=== PATIENT | female | born 1945 | race Caucasian/White ===

== ENCOUNTER → 2020-02-18 15:03 | Outpatient (CLI) | payer MEDICARE, SELFPAY ==
--- NOTE | ~2020-02-18 | US_ITS ---
EXAMINATION: US renal BI EXAM DATE: 02/18/2020 15:53 INDICATION: UTI, hematuria. TECHNIQUE: Multiple grayscale and Doppler images of the kidneys were obtained (by a technologist who performed the scan) and subsequently reviewed. There is no prior study for comparison. FINDINGS: There is hepatic steatosis. Right kidney: There is normal contour and echogenicity. It measures 9.3 x 4.5 x 5.5 centimeters. Th ere are no focal renal lesions identified. There is no hydronephrosis. Left kidney: There is normal contour and echogenicity. It measures 10.1 x 4.9 x 5.0 centimeters. Th ere are no focal renal lesions identified. There is no hydronephrosis. Bladder unremarkable. IMPRESSION: 1. Sonographically unremarkable kidneys. 2. Hepatic steatosis. Reviewed, dictated and finalized at location B.
== END ==
PROVIDERS: PCP Internal Medicine
DX: N39.0 Urinary tract infection, site not specified (principal); K76.0 Fatty (change of) liver, not elsewhere classified
CPT/HCPCS: 76775

== ENCOUNTER → 2020-12-03 12:05 | Outpatient (CLI) | payer MEDICARE, SELFPAY ==
--- NOTE | ~2020-12-03 | XR_ITS ---
EXAMINATION: XR foot LT min 3V DATE: 12/03/2020 12:59 INDICATION: Left foot pain TECHNIQUE: Dorsoplantar, lateral, and 2 oblique views of the left foot were obtained. COMPARISON: None. FINDINGS: There is subtle lucency at the lateral base of the fifth metatarsal. 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 There is a small plantar calcaneal enthesophyte. IMPRESSION: 1. Possible nondisplaced fracture at the lateral base of the fifth metatarsal. Recommend clinical cor relation for pain. Reviewed, dictated and finalized at location B. IMPRESSION: 1. Possible nondisplaced fracture at the lateral base of the fifth metatarsal. Recommend clinical correlation for pain.
== END ==
PROVIDERS: PCP Internal Medicine; Visit Provider Podiatrist Foot & Ankle Surgery
DX: M79.672 Pain in left foot (principal)
CPT/HCPCS: 73630

== ENCOUNTER 2021-03-02 00:52 | Day surgery (SDC) | payer MEDICARE, SELFPAY ==
[2021-02-14 12:32] VITALS: BMI 32.9
--- NOTE | 2021-03-01 13:58 | WPDANESEPPF ---
Anes - Initial Pre Proc Eval Procedure: Operation Date: 03/02/21 08:30 Proposed Procedures p Screening Colonoscopy - Adrián Vallejo MD Date/Time: 03/01/21 13:58 Surgeon: Adrián Vallejo MD Pre Op Diagnosis: hx of colon polyps Patient Data Age: 75 Gender: F Height: 1.63 m Weight: 87 kg Allergies Allergy/AdvReac Type Severity Reaction Status Date / Time clindamycin AdvReac Itching Verified 03/02/21 07:39 lisinopril AdvReac Cough Verified 03/02/21 07:39 glycol Allergy Itching Uncoded 01/18/21 13:29 Home Medications Medication Instructions Recorded Confirmed Type rosuvastatin 5 mg PO DAILY 08/19/19 02/14/21 History sodium,potassium,mag sulfates 17.5 See Rx Instructions PO .COMPLEX 02/04/21 Rx gram-3.13 gram-1.6 gram oral soln #354 ml amlodipine 2.5 mg PO DAILY 02/14/21 02/14/21 History lorazepam 1 mg PO DAILY 02/14/21 03/02/21 History Patient hx anesthesia problems: none Family hx anesthesia problems: none PMFSH Past Medical History Medical History Anxiety Chronic GERD Headaches due to old head injury Hypertension IBS (irritable bowel syndrome) Obesity Family History Family History Father Diabetes mellitus Hypertension Heart disease Alcohol abuse Mother Diabetes mellitus Hypertension Cancer Sibling Diabetes mellitus Cancer Son Hypertension Asthma Cancer Social History Social History Smoking status: Never smoker Second hand tobacco smoke exposure: No Alcohol intake: never Alcohol use details: whiskey Substance use: never Substance use type: does not use Living arrangements: with family Gender identity (if verbalized by the patient): Female Spiritual care concerns: No Agree to blood products: Yes Anes - Eval Final PreProcedure Day of Procedure 03/01/21 13:58 Patient weight: obese Heart: regular rate and rhythm Lungs: clear to auscultation and normal air movement Airway: Mallampati scale class II Neurological: alert and oriented Last oral intake: >/= 8 hours ASA classification: III Emergent: no Anesthetic plan: proceed Anesthesia type and monitoring: general GIVS Informed Consent: The patient's anesthetic plan and its attendant risks and benefits were discussed with the patient/family/POA. Questions were solicited and answers provided to the satisfaction of the patient/family/POA.
[2021-03-02 07:41] VITALS: BP 165/95; PULSE 101; RESP 20; TEMP 36.2; O2SAT 95; BMI 31.8
--- NOTE | 2021-03-02 07:52 | PM.HPGS ---
History of Present Illness History of Present Illness Consent: Risks, benefits, and alternatives have been discussed and questions answered. Patient agrees to proceed with procedure. Chief complaint: hx of colon polyps Narrative: Anika Castillo is a 75 year old female here for colon cancer screening. She does have a history of polyps. Recently she has been troubled by great deal of perianal excoriation, itching, probably due to the fact that she has been on several courses of antibiotics. Review of Systems Review of Systems: All systems reviewed & are unremarkable except as noted in HPI and below PMFSH Past Medical History Medical History Anxiety Chronic GERD Headaches due to old head injury Hypertension IBS (irritable bowel syndrome) Obesity Family History Family History Father Diabetes mellitus Hypertension Heart disease Alcohol abuse Mother Diabetes mellitus Hypertension Cancer Sibling Diabetes mellitus Cancer Son Hypertension Asthma Cancer Social History Social History Smoking status: Never smoker Second hand tobacco smoke exposure: No Alcohol intake: never Alcohol use details: [employer] Substance use: never Substance use type: does not use Living arrangements: with family Gender identity (if verbalized by the patient): Female Spiritual care concerns: No Agree to blood products: Yes Meds Home Medications and Allergies Home Medications Medication Instructions Recorded Confirmed Type rosuvastatin 5 mg PO DAILY 08/19/19 02/14/21 History sodium,potassium,mag sulfates 17.5 See Rx Instructions PO .COMPLEX 02/04/21 Rx gram-3.13 gram-1.6 gram oral soln #354 ml amlodipine 2.5 mg PO DAILY 02/14/21 02/14/21 History lorazepam 1 mg PO DAILY 02/14/21 03/02/21 History Allergies Allergy/AdvReac Type Severity Reaction Status Date / Time clindamycin AdvReac Itching Verified 03/02/21 07:39 lisinopril AdvReac Cough Verified 03/02/21 07:39 glycol Allergy Itching Uncoded 01/18/21 13:29 Vital Signs Vital Signs - 24 hr 03/02/21 07:41 Temperature 36.2 C L Pulse Rate 101 H Respiratory Rate 20 Blood Pressure 165/95 H Pulse Oximetry 95 Exam Const: General: alert Orientation/consciousness: patient oriented x3 Resp: Auscultation: clear to auscultation bilaterally Cardio: Rhythm: regular rhythm GI: GI Palp: Yes Soft to palpation and No Tenderness to palpation present (GI) Neuro: General: patient oriented x3 Assessment and Plan Assessment and plan (1) Colon cancer screening: Code(s): Z12.11 - Encounter for screening for malignant neoplasm of colon Status: Acute Assessment and Plan: Colonoscopy with possible biopsy or polypectomy or cautery or injection of substances.
[2021-03-02] MEDS: LACTATED RINGERS 1,000 ML 150 ML IV CONT (07:55)
[2021-03-02 08:46] VITALS: BP 119/67; PULSE 76; RESP 18; O2SAT 96
[2021-03-02 08:56] VITALS: BP 129/78; PULSE 75; RESP 17; O2SAT 97
[2021-03-02 09:06] VITALS: BP 131/81; PULSE 72; RESP 26; O2SAT 98
== END 2021-03-02 09:17 | disposition home or self-care (01) ==
PROVIDERS: PCP Internal Medicine; Visit Provider Internal Medicine Gastroenterology
PROC: 0DJD8ZZ Inspection of Lower Intestinal Tract, Via Natural or Artificial Opening Endoscopic (ICD-10-PCS; CPT 45378; principal; 2021-03-02 08:30)
DX: Z12.11 Encounter for screening for malignant neoplasm of colon (principal); K57.30 Diverticulosis of large intestine without perforation or abscess without bleeding; D12.2 Benign neoplasm of ascending colon; D12.3 Benign neoplasm of transverse colon; I10 Essential (primary) hypertension; K21.9 Gastro-esophageal reflux disease without esophagitis; F41.9 Anxiety disorder, unspecified; K58.9 Irritable bowel syndrome, unspecified; E66.9 Obesity, unspecified; Z68.31 Body mass index [BMI] 31.0-31.9, adult
CPT/HCPCS: 45380; 45385; 88305; J2704; J7120

== ENCOUNTER → 2021-11-18 10:08 | Outpatient (CLI) | payer MEDICARE, SELFPAY ==
--- NOTE | ~2021-11-18 | XR_ITS ---
EXAMINATION: XR thoracic spine 2V DATE: 11/18/2021 11:37 INDICATION: Left-sided neck and upper back and shoulder pain. TECHNIQUE: 2 views of thoracic spine standing were obtained. COMPARISON: None. FINDINGS: There is 12 degrees dextroscoliosis of thoracic spine. Vertebral body heights are normal. T here is mildly decreased disc height at multiple levels in mid thoracic spine. There are endplate ost eophytes at most levels. IMPRESSION: 1. Mild thoracic spondylosis. 2. Thoracic dextroscoliosis. Reviewed, dictated and finalized at location A.
--- NOTE | ~2021-11-18 | XR_ITS ---
XR cervical spine 4-5V DATE: 11/18/2021 11:37 INDICATION: Neck pain TECHNIQUE: Standing AP, lateral, open-mouth and swimmer views COMPARISON: None FINDINGS: C1 and C2 are normally aligned and the odontoid process is intact. No fracture or dislocati on or locked facet or prevertebral soft tissue swelling. There is mild loss of height at C4-5 interspace. There is moderately severe degenerative disc disease and prominent posterior spurring at C5-6. Promin ent uncovertebral joint spurring bilaterally at C5-6. IMPRESSION: Severe degenerative disc disease and prominent posterior spurring at C5-C6 Prominent uncovertebral joint spurring at C5-6 bilaterally Mild loss of height at C4-5 interspace Reviewed, dictated and finalized at location A. IMPRESSION: Severe degenerative disc disease and prominent posterior spurring a t C5-C6 Prominent uncovertebral joint spurring at C5-6 bilaterally Mild loss of height at C4-5 interspace
--- NOTE | ~2021-11-18 | XR_ITS ---
XR shoulder LT min 2V DATE: 11/18/2021 11:37 INDICATION: Left shoulder pain TECHNIQUE: 4 views COMPARISON: None FINDINGS: No fracture or dislocation, periosteal reaction or bone destruction or abnormal soft tissue calcification. There is mild spurring at the acromion clavicular joint. Normal alignment at the acro mioclavicular and glenohumeral joints. IMPRESSION: Mild spurring at the left acromioclavicular joint Reviewed, dictated and finalized at location A.
== END ==
PROVIDERS: PCP Internal Medicine; Visit Provider Internal Medicine
DX: M47.894 Other spondylosis, thoracic region (principal); M25.512 Pain in left shoulder; M50.322 Other cervical disc degeneration at C5-C6 level
CPT/HCPCS: 72050; 72070; 73030

== ENCOUNTER 2022-01-12 12:30 | Outpatient (RCR) | payer MEDICARE, SELFPAY ==
--- NOTE | 2021-12-15 14:32 | PTOPEVAL ---
PHYSICAL THERAPY INITIAL EVALUATION. Thank you for referring Anika Castillo to [facility].? The patient is scheduled to be seen for therapy? 2x/week for 4 weeks. Please review, sign, date and return this plan of care CINDY. I agree with and certify that the following plan of care is medically necessary. Referring Physician Date Attending Provider: Lg West APN *PT Outpatient Evaluation Start: 12/15/21 Evaluation Information Diagnosis L shoulder pain Onset ~2 months Subjective Information Pt states she has been having Query Text:As Reported By Patient/ left shoulder pain, into her Family shoulder blade and down her arm for about 2 months not. She states she has been told it may be a pinched nerve. The only mechanism of injury she can think of is trying to lift a cast iron skillet with one arm. Pt states her pain in worse in the morning and relieved partially with a heating pad. Self Report Pain Assessment Left Shoulder(s) Reported Pain Level 4 Pain Description Aching,Numbness Pain Frequency Acute,Intermittent Lowest Pain Intensity 0 Greatest Pain Intensity 4 Cervical ROM Cervical Flexion (0-60) 60 active Cervical Extension (0-70) 50 active Cervical Lateral Flexion Right (0-50) 45 active Cervical Lateral Flexion Left (0-50) 45 active Cervical Rotation Right (0-90) 70 active Cervical Rotation Left (0-90) 70 active Cervical ROM WNL Cervical ROM Comments increased tightness felt with rotation to the R and R lateral flexion Upper Extremity Range of Motion General Upper Extremity Range of Motion WFL/Left,WFL/Right Gross Upper Extremity Range of Motion B UE equally limited but still functional Upper Extremity Muscle Strength Testing General Upper Extremity Strength WFL/Left,WFL/Right Gross Upper Extremity Strength Comments B UE grossly 4+/5 Muscle Length Testing Teres Major Muscle Length (R) WFL,(L) WFL Posture Head/C-Spine Posture Excess Extension,Forward Head Thoracic Spine Posture Flattened Lumbar Spine Posture Increased Lordosis Shoulder Posture (L) Rounded,(R) Rounded,(L) Forward,(R) Forward Scapula Posture (L) Rotated Up,(L) Elevated Palpation Assessment Palpation tender along medial border of the scapula PT Clinical Summary Anika presents to therapy
--- NOTE | 2022-01-12 12:53 | PTOPEVAL ---
PHYSICAL THERAPY PROGRESS REPORT AND DISCHARGE SUMMARY. Thank you for referring Anika Castillo to [facility].? The patient is d/c'ed from skilled therapy services at this time. Please review, sign, date and return this plan of care CINDY. I agree with and certify that the following plan of care is medically necessary. Referring Physician Date Attending Provider: Lg West APN Evaluation Information Diagnosis L shoulder pain Onset ~2 months Subjective Information Pt states she has little to no Query Text:As Reported By Patient/ pain today, and had no pain Family yesterday. She states she was able to take down the curtains and drapes down and wash them , she states normally who would have not even attempted this cause she know it would have caused pain. Pain Assessment Left Shoulder(s) Reported Pain Level 1 Cervical and Lumbar ROM Cervical active ROM Cervical Flexion (0-60) 60 Cervical Extension (0-70) 60 Cervical Lateral Flexion Right (0-50) 45 Cervical Lateral Flexion Left (0-50) 45 Cervical Rotation Right (0-90) 70 Cervical Rotation Left (0-90) 70 Cervical ROM WNL Cervical ROM Comments increased tightness felt with rotation to the L Upper Extremity Range of Motion General Upper Extremity Range of Motion WFL/Left,WFL/Right Gross Upper Extremity Range of Motion B UE equally limited but Comments functional. Reports mild soreness in L upper trap region Upper Extremity Muscle Strength Testing General Upper Extremity Strength WFL/Left,WFL/Right Gross Upper Extremity Strength Comments B UE grossly 4+/5 - no reports of soreness with resisted motions Posture Head/C-Spine Posture Excess Extension,Forward Head Thoracic Spine Posture Flattened Lumbar Spine Posture Increased Lordosis Palpation Assessment Palpation tender along L upper trap Manual Therapy Side Left Manual Therapy Location Shoulder Patient Position Sitting Manual Therapy Treatment Soft Tissue Mobilization Movement Findings Moderate Hypomobility Treatment Comments - STM to L upper trap PT Clinical Summary Anika presents to therapy today for her progress report following 8 visits of therapy to treat her diagnosis of L shoulder pain. Today she
== END 2022-01-12 15:15 | disposition home or self-care (01) ==
LOC: ANHPT 12:30
PROVIDERS: PCP Internal Medicine; Visit Provider Nurse Practitioner
DX: M54.12 Radiculopathy, cervical region (principal)
CPT/HCPCS: 97014; 97110; 97112; 97140; 97161; G0283

== ENCOUNTER → 2022-01-27 09:15 | Outpatient (CLI) | payer MEDICARE, SELFPAY ==
--- NOTE | ~2022-01-27 | MR_ITS ---
EXAMINATION: MR cervical spine wo con DATE: 01/27/2022 09:49 INDICATION: Other spondylosis with radiculopathy, cervical region. TECHNIQUE: Magnetic resonance imaging (MRI) of the cervical spine was performed without intravenous c ontrast. Sequences included sagittal T2-weighted FSE, sagittal T2-weighted FS FSE, sagittal T1-weight ed FSE, axial MERGE, and axial T2-weighted FSE. COMPARISON: Cervical spine radiographs 11/18/2021 FINDINGS: There is 3 degrees levocurvature of cervicothoracic spine. There is 2 mm retrolisthesis of C5 on C6. There is mildly decreased disc height at C4-C5 and moderately decreased disc height at C5-C 6. The spinal cord signal intensity is normal. The following disc levels are specifically discussed: C2-C3: The disc does not extend beyond the endplate margin. There is no uncovertebral joint osteoarth ritis. There is mild right and moderate left facet joint osteoarthritis. There is no neural foraminal stenosis. There is no central canal stenosis. C3-C4: The disc does not extend beyond the endplate margin. There is no uncovertebral joint osteoarth ritis. There is mild right and severe left facet joint osteoarthritis. There is mild left neural fora chong stenosis. There is no central canal stenosis. C4-C5: The disc is bulging. There is mild left uncovertebral joint osteoarthritis. There is mild left facet joint osteoarthritis. There is mild left neural foraminal stenosis. There is mild central lenny l stenosis. C5-C6: The disc is bulging. There is severe bilateral uncovertebral joint osteoarthritis. There is mi ld bilateral facet joint osteoarthritis. There is moderate bilateral neural foraminal stenosis. There is moderate central canal stenosis with ventral and dorsal indentation of the spinal cord. C6-C7: The disc is bulging. There is mild left uncovertebral joint osteoarthritis. There is mild bila teral facet joint osteoarthritis. There is no neural foraminal stenosis. There is mild central canal stenosis. C7-T1: The disc does not extend beyond the endplate margin. There is no uncovertebral joint osteoarth ritis. There is severe bilateral facet joint osteoarthritis. There is mild bilateral neural foraminal stenosis. There is no central canal stenosis. IMPRESSION: 1. Moderate cervical spondylosis. Reviewed, dictated and finalized at location A.
== END ==
PROVIDERS: PCP Internal Medicine; Visit Provider Nurse Practitioner
DX: M47.22 Other spondylosis with radiculopathy, cervical region (principal)
CPT/HCPCS: 72141

== ENCOUNTER 2022-07-17 01:02 | Day surgery (SDC) | payer MEDICARE, SELFPAY ==
[2022-07-10 09:37] VITALS: BMI 32.1
--- NOTE | 2022-07-15 11:32 | WPDANESEPPF ---
Anes - Initial Pre Proc Eval Procedure: Operation Date: 07/17/22 11:15 Proposed Procedures p Flexible Sigmoidoscopy - Senthil Mar MD s [facility] Hemorrhoid Treatment - Senthil Mar MD <Kishor John MD - Last Filed: 07/19/22 17:21> Date/Time: 07/15/22 11:32 <Kishor John MD - Last Filed: 07/19/22 17:21> Surgeon: Senthil Mar MD <Kishor John MD - Last Filed: 07/19/22 17:21> Pre Op Diagnosis: rectal burn/hemorrhoids <Kishor John MD - Last Filed: 07/19/22 17:21> Patient Data Age: 77 Gender: F Height: 1.63 m Weight: 85 kg <Kishor John MD - Last Filed: 07/19/22 17:21> Allergies Allergy/AdvReac Type Severity Reaction Status Date / Time clindamycin AdvReac Itching Verified 07/17/22 09:50 lisinopril AdvReac Cough Verified 07/17/22 09:50 glycol Allergy Itching Uncoded 07/17/22 09:50 <Kishor John MD - Last Filed: 07/19/22 17:21> Home Medications Medication Instructions Recorded Confirmed Type rosuvastatin 5 mg tablet 5 mg PO DAILY 08/19/19 07/17/22 History amlodipine 2.5 mg tablet 2.5 mg PO DAILY 02/14/21 07/17/22 History lorazepam 0.5 mg tablet 1 mg PO DAILY 02/14/21 07/17/22 History citalopram 10 mg tablet 10 mg PO DAILY 05/17/21 07/17/22 History aojjlueg-izi-qgmlo acid 0.4 1 tablet PO DAILY 11/01/21 07/17/22 History mg-lycopene 300 mcg-lutein 250 mcg tablet (Centrum Silver) pharmacy compounding accessory See Rx Instructions miscellaneous 05/02/22 07/17/22 Rx .COMPLEX #1 ea nystatin 100,000 unit/gram topical 1 applic topical TID #30 grams 05/30/22 07/17/22 Rx powder <Kishor John MD - Last Filed: 07/19/22 17:21> Patient hx anesthesia problems: none <Elio Harris DO - Last Filed: 07/17/22 09:56> Family hx anesthesia problems: none <Elio Harris DO - Last Filed: 07/17/22 09:56> Results Review: All pre-operative results and documents have been reviewed as part of the pre-operative evaluation. <Kishor John MD - Last Filed: 07/19/22 17:21> [facility] Past Medical History Medical History: Medical History (Updated 07/15/22 @ 11:33 by Kishor John MD) Adenomatous colon polyp Anal burning Anxiety Chronic GERD Fecal smearing Headaches due to old head injury Hyperlipidemia Hypertension IBS (irritable bowel syndrome) Internal hemorrhoid Obesity Obesity Pruritus ani <Kishor John MD - Last Filed: 07/19/22 17:21> Surgical History Surgical History: Surgical History H/O tubal ligation History of History of cataract surgery History of cholecystectomy History of D&C <Kishor John MD - Last Filed: 07/19/22 17:21> Family History Family History: Family History Father Diabetes mellitus Hypertension Heart disease Alcohol abuse Mother Diabetes mellitus Hypertension Cancer Sibling Diabetes mellitus Cancer Son Hypertension Asthma Cancer <Kishor John MD - Last Filed: 07/19/22 17:21> Social History Social History: Social History Smoking status: Never smoker Second hand tobacco smoke exposure: No Alcohol intake: never Alcohol use details: whiskey Substance use: never Substance use type: does not use Living arrangements: with family Gender identity (if verbalized by the patient): Female Sexual Orientation (if Verbalized by the Patient): Straight or Heterosexual Spiritual care concerns: No Agree to blood products: Yes <Kishor John MD - Last Filed: 07/19/22 17:21> Anes - Eval Final PreProcedure Day of Procedure 07/15/22 11:32 <Kishor John MD - Last Filed: 07/19/22 17:21> Patient weight: obese <Kishor John MD - Last Filed: 07/19/22 17:21> H
[2022-07-17 09:43] VITALS: BP 151/95; PULSE 98; RESP 18; TEMP 36.4; O2SAT 97; BMI 31.4
[2022-07-17] MEDS: LACTATED RINGERS 1,000 ML 150 ML IV CONT (10:06)
--- NOTE | 2022-07-17 10:13 | PM.HPGS ---
History of Present Illness History of Present Illness Consent: Risks, benefits, and alternatives have been discussed and questions answered. Patient agrees to proceed with procedure. Chief complaint: rectal burn/hemorrhoids Narrative: Anika Castillo is a 77 year old female with burning sensation in anus, tried several ointment. Last colonoscopy 2020 with polyp and diverticulosis Review of Systems Constitutional: Constitutional: Denies headache(s) and Denies weakness Eyes: Eyes: Denies blurry vision ENT: Reports Normal hearing present, Denies headache(s) and Denies neck pain Cardiovascular: Cardiovascular: Denies chest pain and Denies dyspnea Respiratory: Respiratory: Denies dyspnea Gastrointestinal: Gastrointestinal: Reports no additional gastrointestinal complaints Genitourinary: Genitourinary: Denies dysuria Musculoskeletal: Musculoskeletal: Denies neck pain Integumentary/Breasts: Skin/Breast: Denies dry skin Neurologic: Reports Normal hearing present, Denies headache(s) and Denies weakness Psychiatric: Psychiatric: Denies anxiety Endocrine: Endocrine: Denies change in body appearance Hematologic/Lymphatic: Hematologic/Lymphatic: Denies easy bleeding Allergic/Immunologic: Allergic/Immunologic: Denies urticaria PMFSH Past Medical History Medical History (Updated 07/15/22 @ 11:33 by Kishor John MD) Adenomatous colon polyp Anal burning Anxiety Chronic GERD Fecal smearing Headaches due to old head injury Hyperlipidemia Hypertension IBS (irritable bowel syndrome) Internal hemorrhoid Obesity Obesity Pruritus ani Surgical History Surgical History H/O tubal ligation History of History of cataract surgery History of cholecystectomy History of D&C Family History Family History Father Diabetes mellitus Hypertension Heart disease Alcohol abuse Mother Diabetes mellitus Hypertension Cancer Sibling Diabetes mellitus Cancer Son Hypertension Asthma Cancer Social History Social History Smoking status: Never smoker Second hand tobacco smoke exposure: No Alcohol intake: never Alcohol use details: whiskey Substance use: never Substance use type: does not use Living arrangements: with family Gender identity (if verbalized by the patient): Female Sexual Orientation (if Verbalized by the Patient): Straight or Heterosexual Spiritual care concerns: No Agree to blood products: Yes Meds Home Medications and Allergies Home Medications Medication Instructions Recorded Confirmed Type rosuvastatin 5 mg tablet 5 mg PO DAILY 08/19/19 07/17/22 History amlodipine 2.5 mg tablet 2.5 mg PO DAILY 02/14/21 07/17/22 History lorazepam 0.5 mg tablet 1 mg PO DAILY 02/14/21 07/17/22 History citalopram 10 mg tablet 10 mg PO DAILY 05/17/21 07/17/22 History hpxxxqea-nnv-hjnxm acid 0.4 1 tablet PO DAILY 11/01/21 07/17/22 History mg-lycopene 300 mcg-lutein 250 mcg tablet (Centrum Silver) pharmacy compounding accessory See Rx Instructions miscellaneous 05/02/22 07/17/22 Rx .COMPLEX #1 ea nystatin 100,000 unit/gram topical 1 applic topical TID #30 grams 05/30/22 07/17/22 Rx powder Allergies Allergy/AdvReac Type Severity Reaction Status Date / Time clindamycin AdvReac Itching Verified 07/17/22 09:50 lisinopril AdvReac Cough Verified 07/17/22 09:50 glycol Allergy Itching Uncoded 07/17/22 09:50 Vital Signs Vital Signs - 24 hr 07/17/22 09:43 Temperature 97.5 F L Pulse Rate 98 Respiratory Rate 18 Blood Pressure 151/95 H Pulse Oximetry 97 Oxygen Delivery Room Air Exam Const: General: comfortable and no acute distress HENMT: Face/Nose/Sinus: Normal nares present Eyes: General: appearance normal, both eyes and all related structures Neck: Neck: no JVD Res
[2022-07-17 10:24] VITALS: BP 126/71; PULSE 72; RESP 20; O2SAT 94
--- NOTE | 2022-07-17 10:25 | W.PM.PROC2 ---
Procedure Note - Detailed Date of Procedure 07/17/22 Pre-op Diagnosis rectal burn/hemorrhoids Post-op Diagnosis Same Procedure Performed IRC of internal hemorrhoids Surgeon Senthil Mar MD Anesthesia Other Description of Procedure I used anoscope and found small internal hemorrhoids, no anal fissure, no lesions. Then advanced IRC probe and hemorrhoids treated 1.5 seconds x5
[2022-07-17 10:34] VITALS: BP 132/80; PULSE 68; RESP 24; O2SAT 95
[2022-07-17 10:44] VITALS: BP 142/83; PULSE 71; RESP 18; O2SAT 97
== END 2022-07-17 10:53 | disposition home or self-care (01) ==
PROVIDERS: Visit Provider Internal Medicine Gastroenterology
PROC: 0DJD8ZZ Inspection of Lower Intestinal Tract, Via Natural or Artificial Opening Endoscopic (ICD-10-PCS; CPT 45330; principal; 2022-07-17 11:15)
PROC: (CPT 46930; 2022-07-17 11:15)
DX: K64.8 Other hemorrhoids (principal); K57.30 Diverticulosis of large intestine without perforation or abscess without bleeding; R15.1 Fecal smearing; Z86.010 Personal history of colon polyps; K58.9 Irritable bowel syndrome, unspecified; I10 Essential (primary) hypertension; E78.5 Hyperlipidemia, unspecified; K21.9 Gastro-esophageal reflux disease without esophagitis; F41.9 Anxiety disorder, unspecified; E66.9 Obesity, unspecified; Z68.31 Body mass index [BMI] 31.0-31.9, adult
CPT/HCPCS: 46930; 45330; J2704; J7120